=== PATIENT | female | born 1990 | race Two or more races ===

== ENCOUNTER 2022-06-28 17:55 | Observation (INO) | payer OTHER ==
[~2022-06-28] VITALS: Ht 162.6 cm; Wt 107.0 kg
[2022-06-28 18:13] VITALS: BP 126/69
[2022-06-28] MEDS ORDERED: PREN1TAB22 PO (20:31)
== END 2022-06-28 20:43 | disposition home or self-care (01) ==
LOC: ER 17:55 → LDRP 18:31
PROVIDERS: ADMIT Obstetrics & Gynecology; ATTEND Obstetrics & Gynecology
DX: O26.893 Other specified pregnancy related conditions, third trimester (principal); R10.9 Unspecified abdominal pain; O9A.213 Injury, poisoning and certain other consequences of external causes complicating pregnancy, third trimester; S39.91XA Unspecified injury of abdomen, initial encounter; Z3A.32 32 weeks gestation of pregnancy; W19.XXXA Unspecified fall, initial encounter; Y93.89 Activity, other specified; Y92.89 Other specified places as the place of occurrence of the external cause
CPT/HCPCS: 59025; 76818; 81002; 94760; 99284; G0378